=== PATIENT | male | born 1990 | race Caucasian/White ===

== ENCOUNTER 2022-11-25 20:04 | Inpatient (IN) | payer MEDICAID ==
[~2022-11-25] VITALS: Ht 190.5 cm; Wt 64.4 kg
[2022-11-25 22:00] LABS: BASOPHILS % (AUTO) 0.8 % (0.0-2.0); EOSINOPHILS % (AUTO) 1.4 % (1.0-6.0); HEMATOCRIT 43.5 % (41-53); HEMOGLOBIN 14.5 g/dL (13.5-17.5); LYMPHOCYTES # (AUTO) 2.6 K/uL (1.0-4.8); LYMPHOCYTES % (AUTO) 40.3 % (22.0-44.0); MEAN CORPUSCULAR HEMOGLOBIN 30.6 pg (26.0-34.0); MEAN CORPUSCULAR HGB CONC 33.3 G/dL (31.0-37.0); MEAN CORPUSCULAR VOLUME 92 fL (80-100); MONOCYTES # (AUTO) 0.7 K/uL (0.1-1.0); NEUTROPHILS % (AUTO) 46.5 % (40.0-70.0); PLATELET COUNT (AUTO) 205 K/uL (150-450); RED BLOOD CELL COUNT(AUTO) 4.73 MIL/uL (4.50-5.90); RED CELL DISTRIBUTION WIDTH 13.7 % (11.5-14.5)
[2022-11-25 22:21] LABS: ANION GAP 7 mmol/L (8-16); CALCIUM, TOTAL 9.7 mg/dL (8.8-10.5); CARBON DIOXIDE 31 mmol/L (22-29); CHLORIDE 96 mmol/L (98-107); CREATININE 0.92 mg/dL (0.60-1.30); GLOMERULAR FILTR. RATE CALC > 60 mL/min (>60); GLUCOSE,RANDOM 91 mg/dL (70-110); SODIUM SERUM 134 mmol/L (136-145); UREA NITROGEN, BLOOD 18 mg/dL (7-18)
[2022-11-25 22:27] LABS: ALANINE AMINOTRANSFERASE 16 U/L (12-78); ALBUMIN 4.4 g/dL (3.4-5.0); ALKALINE PHOSPHATASE 121 U/L (46-116); ASPARTATE AMINOTRANSFERASE 14 U/L (15-37); BILIRUBIN,TOTAL 0.6 mg/dL (0.1-1.0); TOTAL PROTEIN, SERUM 8.4 g/dL (6.4-8.2)
[2022-11-25] MEDS ORDERED: ACETAMINOPHEN 500 MG TABLET PO ONE (23:00)
[2022-11-25] MEDS ORDERED: LORazepam 1 MG TABLET PO ONE (23:00)
[2022-11-25 23:15] LABS: COVID AG,FIA SOURCE NASOPHARYNGEAL
[2022-11-26] MEDS ORDERED: ACETAMINOPHEN 325 MG TABLET PO PRN
[2022-11-26] MEDS ORDERED: ONDANSETRON HCL 4 MG/2 ML VIAL IVP PRN
[2022-11-26] MEDS: POTASSIUM CHLORIDE 10% 40 MEQ/30 ML LIQUID UDCUP PO ONE ×2 (00:52)
[2022-11-26] MEDS ORDERED: BISACODYL 5 MG EC TABLET PO PRN (04:00)
[2022-11-26] MEDS: HEPARIN SODIUM,PORCINE 5,000 UNITS/ML VIAL SQ SCH ×3 (07:40→16:00)
[2022-11-26] MEDS: DOCUSATE SODIUM 100 MG CAPSULE PO SCH ×2 (07:41→21:00)
[2022-11-26] MEDS: POLYETHYLENE GLYCOL 3350 17 GM PACKET PO SCH ×2 (09:00→21:00)
[2022-11-26] MEDS ORDERED: HALOPERIDOL LACTATE 5 MG/ML VIAL IM ONE (10:30)
[2022-11-26] MEDS ORDERED: DiphenhydrAMINE HCL 50 MG/ML VIAL IM ONE (10:30)
[2022-11-26] MEDS ORDERED: LORazepam 2 MG/ML VIAL IM ONE (10:30)
[2022-11-26 12:55] VITALS: BP 130/76
[2022-11-26 14:57] VITALS: BP 128/74
[2022-11-27 03:06] VITALS: BP 116/63
[2022-11-27] MEDS ORDERED: LORazepam 1 MG TABLET PO ONE (04:30)
[2022-11-27] MEDS: HEPARIN SODIUM,PORCINE 5,000 UNITS/ML VIAL SQ SCH ×4 (08:00→23:22)
[2022-11-27] MEDS: DOCUSATE SODIUM 100 MG CAPSULE PO SCH ×2 (08:33→21:00)
[2022-11-27] MEDS: POLYETHYLENE GLYCOL 3350 17 GM PACKET PO SCH ×2 (08:33→21:00)
[2022-11-27] MEDS: HYDROCODONE/ACETAMINOPHEN 5-325 MG TABLET PO PRN (08:35)
[2022-11-27] MEDS: LORazepam 1 MG TABLET PO PRN ×2 (10:43→23:21)
[2022-11-27 15:36] VITALS: BP 115/69
[2022-11-27 23:22] VITALS: BP 116/75
[2022-11-28 04:35] VITALS: BP 95/59
[2022-11-28] MEDS: LORazepam 1 MG TABLET PO PRN ×3 (07:18→23:46)
[2022-11-28] MEDS: HYDROCODONE/ACETAMINOPHEN 5-325 MG TABLET PO PRN ×3 (07:18→23:46)
[2022-11-28] MEDS: HEPARIN SODIUM,PORCINE 5,000 UNITS/ML VIAL SQ SCH ×3 (07:19→23:55)
[2022-11-28] MEDS: DOCUSATE SODIUM 100 MG CAPSULE PO SCH ×3 (07:20→21:00)
[2022-11-28] MEDS: POLYETHYLENE GLYCOL 3350 17 GM PACKET PO SCH ×3 (07:21→21:00)
[2022-11-28 07:25] VITALS: BP 88/60
[2022-11-28] MEDS: QUEtiapine FUMARATE 300 MG TABLET PO SCH (20:40)
[2022-11-28 23:36] VITALS: BP 95/65
[2022-11-29] MEDS: HEPARIN SODIUM,PORCINE 5,000 UNITS/ML VIAL SQ SCH ×2 (08:00→16:00)
[2022-11-29] MEDS: POLYETHYLENE GLYCOL 3350 17 GM PACKET PO SCH ×2 (08:15→20:33)
[2022-11-29] MEDS: DOCUSATE SODIUM 100 MG CAPSULE PO SCH ×2 (08:15→20:33)
[2022-11-29 09:45] VITALS: BP 122/77
[2022-11-29] MEDS: LORazepam 1 MG TABLET PO PRN ×2 (11:36→22:31)
[2022-11-29] MEDS: HYDROCODONE/ACETAMINOPHEN 5-325 MG TABLET PO PRN ×2 (11:36→22:32)
[2022-11-29 17:49] VITALS: BP 133/77
[2022-11-29] MEDS: QUEtiapine FUMARATE 300 MG TABLET PO SCH (20:29)
[2022-11-29 22:20] VITALS: BP 118/72
[2022-11-30 05:06] VITALS: BP 93/56
[2022-11-30] MEDS ORDERED: SODIUM CHLORIDE 0.9% 1,000 ML ONE (06:13)
[2022-11-30] MEDS ORDERED: NALOXONE HCL 0.4 MG/ML VIAL ONE (06:23)
[2022-11-30] MEDS ORDERED: EPINEPHrine 1:10,000 [1 MG/10 ML] SYRINGE ONE (06:23)
[2022-11-30] MEDS ORDERED: FLUMAZENIL 0.1 MG/ML 5 ML VIAL IVP ONE (06:23)
[2022-11-30] MEDS ORDERED: SODIUM TETRADECYL SULFATE 3% 60 MG/2 ML VIAL IVP ONE (06:23)
[2022-11-30] MEDS ORDERED: DiphenhydrAMINE HCL 50 MG/ML VIAL ONE (06:23)
[2022-11-30] MEDS ORDERED: ATROPINE SULFATE 0.1 MG/ML 10 ML SYRINGE IVP ONE (06:23)
[2022-11-30] MEDS: HEPARIN SODIUM,PORCINE 5,000 UNITS/ML VIAL SQ SCH ×4 (08:00→23:36)
[2022-11-30 08:24] VITALS: BP 112/60
[2022-11-30] MEDS: POLYETHYLENE GLYCOL 3350 17 GM PACKET PO SCH ×2 (09:00→21:00)
[2022-11-30] MEDS: DOCUSATE SODIUM 100 MG CAPSULE PO SCH ×2 (09:00→21:00)
[2022-11-30] MEDS: HYDROCODONE/ACETAMINOPHEN 5-325 MG TABLET PO PRN ×2 (09:57→19:45)
[2022-11-30] MEDS: LORazepam 1 MG TABLET PO PRN ×2 (09:57→16:20)
[2022-11-30] MEDS ORDERED: PROPOFOL 1% 20 ML VIAL IVP ONE (12:00)
[2022-11-30] MEDS ORDERED: LIDOCAINE/PF 2% 5 ML VIAL IM ONE (12:00)
[2022-11-30 15:11] VITALS: BP 122/64
[2022-11-30 19:40] VITALS: BP 126/66
[2022-11-30] MEDS: QUEtiapine FUMARATE 300 MG TABLET PO SCH (20:59)
[2022-12-01 06:00] VITALS: BP 102/58
[2022-12-01 08:00] VITALS: BP 98/56
[2022-12-01] MEDS: HEPARIN SODIUM,PORCINE 5,000 UNITS/ML VIAL SQ SCH ×3 (08:00→23:39)
[2022-12-01] MEDS: DOCUSATE SODIUM 100 MG CAPSULE PO SCH ×2 (09:00→21:00)
[2022-12-01] MEDS: POLYETHYLENE GLYCOL 3350 17 GM PACKET PO SCH ×2 (09:00→21:00)
[2022-12-01] MEDS: LORazepam 1 MG TABLET PO PRN ×2 (10:33→17:51)
[2022-12-01 15:56] VITALS: BP 108/54
[2022-12-01] MEDS: HYDROCODONE/ACETAMINOPHEN 5-325 MG TABLET PO PRN ×2 (17:50→18:34)
[2022-12-01 17:54] VITALS: BP 112/59
[2022-12-01] MEDS: QUEtiapine FUMARATE 300 MG TABLET PO SCH (20:40)
[2022-12-01 21:45] VITALS: BP 106/52
[2022-12-02 07:25] VITALS: BP 114/58
[2022-12-02] MEDS: HEPARIN SODIUM,PORCINE 5,000 UNITS/ML VIAL SQ SCH ×2 (08:00→16:00)
[2022-12-02] MEDS: POLYETHYLENE GLYCOL 3350 17 GM PACKET PO SCH ×2 (09:00→21:00)
[2022-12-02] MEDS: DOCUSATE SODIUM 100 MG CAPSULE PO SCH ×2 (09:00→21:00)
[2022-12-02] MEDS: LORazepam 1 MG TABLET PO PRN ×2 (09:25→16:19)
[2022-12-02] MEDS: HYDROCODONE/ACETAMINOPHEN 5-325 MG TABLET PO PRN ×2 (09:45→16:20)
[2022-12-02 15:23] VITALS: BP 110/62
[2022-12-02 19:06] VITALS: BP 100/68
[2022-12-02 20:30] VITALS: BP 104/57
[2022-12-02] MEDS: QUEtiapine FUMARATE 300 MG TABLET PO SCH (21:00)
[2022-12-03 02:19] LABS: COVID AG,FIA SOURCE NASAL SWAB
[2022-12-03 06:15] VITALS: BP 100/55
[2022-12-03 07:28] VITALS: BP 102/58
[2022-12-03] MEDS: HEPARIN SODIUM,PORCINE 5,000 UNITS/ML VIAL SQ SCH ×4 (08:00→22:23)
[2022-12-03] MEDS: POLYETHYLENE GLYCOL 3350 17 GM PACKET PO SCH ×2 (09:00→21:00)
[2022-12-03] MEDS: DOCUSATE SODIUM 100 MG CAPSULE PO SCH ×2 (09:00→21:00)
[2022-12-03] MEDS: HYDROCODONE/ACETAMINOPHEN 5-325 MG TABLET PO PRN (13:20)
[2022-12-03 16:10] VITALS: BP 131/86
[2022-12-03] MEDS ORDERED: HALOPERIDOL LACTATE 5 MG/ML VIAL IM ONE (19:00)
[2022-12-03] MEDS ORDERED: DiphenhydrAMINE HCL 50 MG/ML VIAL IM ONE (19:00)
[2022-12-03 19:30] VITALS: BP 121/77
[2022-12-03] MEDS: QUEtiapine FUMARATE 300 MG TABLET PO SCH (21:00)
[2022-12-04 07:00] VITALS: BP 102/73
[2022-12-04] MEDS: HEPARIN SODIUM,PORCINE 5,000 UNITS/ML VIAL SQ SCH (08:00)
[2022-12-04] MEDS: POLYETHYLENE GLYCOL 3350 17 GM PACKET PO SCH (09:00)
[2022-12-04] MEDS: DOCUSATE SODIUM 100 MG CAPSULE PO SCH (09:00)
[2022-12-04] MEDS ORDERED: POLY17PO47 PO (12:42)
[2022-12-04] MEDS ORDERED: QUET300T2 PO (12:43)
[2022-12-04 14:00] LABS: COVID AG,FIA SOURCE NASAL SWAB
== END 2022-12-04 13:55 | DRG 254 ==
LOC: EDBD → EMS 20:04 → EDBD 11-26 12:06 → 6N 11-26 12:06
PROVIDERS: ADMIT Internal Medicine; ATTEND Internal Medicine
PROC: 0DC98ZZ Extirpation of Matter from Duodenum, Via Natural or Artificial Opening Endoscopic (ICD-10-PCS; principal; 2022-11-30 07:00)
DX: T18.8XXA Foreign body in other parts of alimentary tract, initial encounter (principal); E87.1 Hypo-osmolality and hyponatremia; R45.851 Suicidal ideations; F25.0 Schizoaffective disorder, bipolar type; E87.6 Hypokalemia; Z20.822 Contact with and (suspected) exposure to COVID-19; F31.9 Bipolar disorder, unspecified; F43.10 Post-traumatic stress disorder, unspecified; R74.8 Abnormal levels of other serum enzymes; K25.9 Gastric ulcer, unspecified as acute or chronic, without hemorrhage or perforation; Z87.891 Personal history of nicotine dependence; Z88.0 Allergy status to penicillin; Z91.199 Patient's noncompliance with other medical treatment and regimen due to unspecified reason; Z88.8 Allergy status to other drugs, medicaments and biological substances; X83.8XXA Intentional self-harm by other specified means, initial encounter; Y93.89 Activity, other specified; Y92.89 Other specified places as the place of occurrence of the external cause; Y99.8 Other external cause status
CPT/HCPCS: 70360; 70490; 71045; 71250; 72192; 74018; 74019; 74150; 74176; 80053; 85025; 88300; 99285; G0480; J0171; J0461; J1200; J1630; J1644; J2060; J2310; J2704; J3490; J7030; Q9967; 36415-L1; 36415-TC

== ENCOUNTER 2022-12-04 10:31 | Inpatient (IN) | payer MEDICAID ==
[~2022-12-04] VITALS: Ht 190.5 cm; Wt 74.1 kg
[2022-12-04] MEDS ORDERED: POLY17PO47 PO (12:42)
[2022-12-04] MEDS ORDERED: QUET300T2 PO (12:43)
[2022-12-04 14:44] VITALS: BP 147/91
[2022-12-04] MEDS ORDERED: NICOTINE 21 MG/24 HOUR PATCH TD PRN (14:45)
[2022-12-04] MEDS: HALOPERIDOL 5 MG TABLET PO PRN (15:02)
[2022-12-04] MEDS ORDERED: ALBUTEROL SULFATE HFA 90 MCG/PUFF 8 GM INHALER IH PRN (16:15)
[2022-12-04] MEDS ORDERED: MAG HYDROX/AL HYDROX/SIMETH ES 30 ML SUSPENSION UDCUP PO PRN (16:15)
[2022-12-04] MEDS ORDERED: CloNIDine HCL 0.1 MG TABLET PO PRN (16:15)
[2022-12-04] MEDS ORDERED: MAGNESIUM HYDROXIDE SUSPENSION 30 ML UDCUP PO PRN (16:15)
[2022-12-04] MEDS ORDERED: LOPERAMIDE HCL 2 MG CAPSULE PO PRN (16:15)
[2022-12-04] MEDS ORDERED: GuaiFENesin/D-METHORPHAN [SUGAR-FREE] 200-20MG/10 ML SYRUP UDCUP PO PRN (16:15)
[2022-12-04] MEDS ORDERED: DOCUSATE SODIUM 100 MG CAPSULE PO PRN (16:15)
[2022-12-04] MEDS ORDERED: PETROLATUM,WHITE 28 GM JELLY TP PRN (16:15)
[2022-12-04] MEDS ORDERED: ACETAMINOPHEN 325 MG TABLET PO PRN (16:15)
[2022-12-04] MEDS ORDERED: ONDANSETRON HCL 4 MG TABLET PO PRN (16:15)
[2022-12-04 16:24] VITALS: BP 138/97
[2022-12-04] MEDS ORDERED: LORazepam 2 MG TABLET PO ONE (16:30)
[2022-12-04 16:50] VITALS: BP 150/106
[2022-12-04] MEDS ORDERED: CloNIDine HCL 0.1 MG TABLET PO ONE (17:15)
[2022-12-04] MEDS: POLYETHYLENE GLYCOL 3350 17 GM PACKET PO SCH (17:16)
[2022-12-04 17:21] LABS: GLUCOMETER DEV NAME(LOC) 3E.C; GLUCOSE,POINT OF CARE 110 MG/DL (70-110)
[2022-12-04 17:30] VITALS: BP 98/50
[2022-12-04] MEDS ORDERED: OxyCODONE HCL/ACETAMINOPHEN 5-325 MG TABLET PO ONE (17:45)
[2022-12-04] MEDS: QUEtiapine FUMARATE 300 MG TABLET PO SCH (20:49)
[2022-12-04] MEDS: TraZODone HCL 50 MG TABLET PO PRN (23:01)
[2022-12-05 06:38] VITALS: BP 104/68
[2022-12-05 08:26] VITALS: BP 94/59
[2022-12-05] MEDS: POLYETHYLENE GLYCOL 3350 17 GM PACKET PO SCH ×2 (09:00→16:51)
[2022-12-05] MEDS: HALOPERIDOL 5 MG TABLET PO PRN (09:21)
[2022-12-05] MEDS: IBUPROFEN 400 MG TABLET PO PRN (09:23)
[2022-12-05] MEDS: QUEtiapine FUMARATE 100 MG TABLET PO SCH ×2 (14:24→16:48)
[2022-12-05] MEDS: NICOTINE 14 MG/24 HOUR PATCH TD PRN (14:29)
[2022-12-05 16:54] VITALS: BP 110/86
[2022-12-05] MEDS: HydrOXYzine PAMOATE 50 MG CAPSULE PO PRN (19:01)
[2022-12-05] MEDS: BusPIRone HCL 5 MG TABLET PO SCH (21:02)
[2022-12-05] MEDS: QUEtiapine FUMARATE 300 MG TABLET PO SCH (21:02)
[2022-12-06] MEDS: POLYETHYLENE GLYCOL 3350 17 GM PACKET PO SCH ×2 (09:00→17:00)
[2022-12-06 09:17] VITALS: BP 94/57
[2022-12-06] MEDS: QUEtiapine FUMARATE 100 MG TABLET PO SCH ×2 (09:43→12:38)
[2022-12-06] MEDS: BusPIRone HCL 5 MG TABLET PO SCH ×3 (09:43→20:15)
[2022-12-06] MEDS: HALOPERIDOL 5 MG TABLET PO PRN (15:11)
[2022-12-06 16:21] VITALS: BP 99/59
[2022-12-06 16:41] VITALS: BP 109/60
[2022-12-06] MEDS: IBUPROFEN 400 MG TABLET PO PRN (16:41)
[2022-12-06] MEDS: QUEtiapine FUMARATE 300 MG TABLET PO SCH (20:15)
[2022-12-07] MEDS: QUEtiapine FUMARATE 100 MG TABLET PO SCH ×2 (07:42→12:50)
[2022-12-07] MEDS: BusPIRone HCL 5 MG TABLET PO SCH ×3 (07:42→20:07)
[2022-12-07] MEDS: POLYETHYLENE GLYCOL 3350 17 GM PACKET PO SCH ×2 (07:42→17:12)
[2022-12-07] MEDS: HydrOXYzine PAMOATE 50 MG CAPSULE PO PRN ×3 (07:43→17:18)
[2022-12-07] MEDS: NICOTINE 14 MG/24 HOUR PATCH TD PRN (07:44)
[2022-12-07 08:20] VITALS: BP 125/84
[2022-12-07 16:02] VITALS: BP 131/86
[2022-12-07] MEDS: HALOPERIDOL 5 MG TABLET PO PRN (17:18)
[2022-12-07] MEDS: QUEtiapine FUMARATE 300 MG TABLET PO SCH (20:07)
[2022-12-07] MEDS: TraZODone HCL 50 MG TABLET PO PRN (20:07)
[2022-12-08 08:12] VITALS: BP 97/56
[2022-12-08] MEDS: QUEtiapine FUMARATE 100 MG TABLET PO SCH ×2 (09:13→13:06)
[2022-12-08] MEDS: POLYETHYLENE GLYCOL 3350 17 GM PACKET PO SCH ×2 (09:13→17:00)
[2022-12-08] MEDS: BusPIRone HCL 5 MG TABLET PO SCH ×3 (09:13→20:49)
[2022-12-08] MEDS: HALOPERIDOL 5 MG TABLET PO PRN ×2 (10:25→17:21)
[2022-12-08] MEDS: HydrOXYzine PAMOATE 50 MG CAPSULE PO PRN ×2 (10:25→17:21)
[2022-12-08] MEDS: NICOTINE 14 MG/24 HOUR PATCH TD PRN (12:05)
[2022-12-08 16:04] VITALS: BP 109/65
[2022-12-08] MEDS: QUEtiapine FUMARATE 300 MG TABLET PO SCH (20:49)
[2022-12-09 08:32] VITALS: BP 105/63
[2022-12-09] MEDS: BusPIRone HCL 5 MG TABLET PO SCH ×3 (08:35→21:00)
[2022-12-09] MEDS: POLYETHYLENE GLYCOL 3350 17 GM PACKET PO SCH ×2 (08:35→17:00)
[2022-12-09] MEDS: QUEtiapine FUMARATE 100 MG TABLET PO SCH ×2 (08:36→14:16)
[2022-12-09] MEDS: NICOTINE 14 MG/24 HOUR PATCH TD PRN (15:46)
[2022-12-09 16:02] VITALS: BP 101/61
[2022-12-09] MEDS: TraZODone HCL 50 MG TABLET PO PRN (20:12)
[2022-12-09] MEDS: QUEtiapine FUMARATE 300 MG TABLET PO SCH (21:00)
[2022-12-10 07:44] LABS: COVID AG,FIA SOURCE NASAL SWAB
[2022-12-10 08:10] VITALS: BP 108/65
[2022-12-10] MEDS: QUEtiapine FUMARATE 100 MG TABLET PO SCH ×2 (08:42→13:04)
[2022-12-10] MEDS: NICOTINE 14 MG/24 HOUR PATCH TD PRN (08:42)
[2022-12-10] MEDS: BusPIRone HCL 5 MG TABLET PO SCH (08:43)
[2022-12-10] MEDS: POLYETHYLENE GLYCOL 3350 17 GM PACKET PO SCH (08:43)
[2022-12-10] MEDS ORDERED: BUSP5TAB20 PO (13:18)
[2022-12-10] MEDS ORDERED: QUET300T19 PO (13:18)
[2022-12-10] MEDS ORDERED: QUET100T34 PO ×2 (13:18)
== END 2022-12-10 15:30 | disposition home or self-care (01) | DRG 750 ==
LOC: 3EC 13:55 → EDBD 13:55
PROVIDERS: ADMIT Psychiatry & Neurology Psychiatry; ATTEND Psychiatry & Neurology Psychiatry
DX: F25.0 Schizoaffective disorder, bipolar type (principal); R45.851 Suicidal ideations; T18.8XXA Foreign body in other parts of alimentary tract, initial encounter; F15.20 Other stimulant dependence, uncomplicated; Z20.822 Contact with and (suspected) exposure to COVID-19; R00.0 Tachycardia, unspecified; X58.XXXA Exposure to other specified factors, initial encounter; K59.00 Constipation, unspecified; Z59.00 Homelessness unspecified; Z76.5 Malingerer [conscious simulation]; Z79.899 Other long term (current) drug therapy; Z88.0 Allergy status to penicillin; Z91.51 Personal history of suicidal behavior; Z88.8 Allergy status to other drugs, medicaments and biological substances; Y93.89 Activity, other specified; Y92.89 Other specified places as the place of occurrence of the external cause; Y99.8 Other external cause status
CPT/HCPCS: 74018; 82962; 84132; 87081; 36415-L1; 36415-TC